=== PATIENT | female | born 1980 | race Caucasian/White ===

== ENCOUNTER 2017-04-28 16:40 | Emergency (ER) | payer BC ==
[2017-04-28] MEDS ORDERED: NAPROXEN SODIUM 550 MG TABLET PO ONE (16:57)
[2017-04-28] MEDS ORDERED: NAPROXEN SODIUM 550 MG TABLET ONE (16:58)
--- NOTE | 2017-04-28 17:17 | ERNOTE ---
Lower Extremity HPI - General Lower Extremities Pain: hip: left Time Seen by Provider: 04/28/17 16:43 Source: patient Exam Limitations: no limitations - Immun/Allergies/Home Medications Immunizations: IMMUNIZATION HX Immunizations Up to Date Yes History of Influenza Vaccine No Hx Pneumococcal Vaccination No Allergies/Adverse Reactions: Allergies Allergy/AdvReac Type Severity Reaction Status Date / Time morphine AdvReac Intermediate Vomiting Verified 04/28/17 16:53 Home Medications: HOME MEDICATIONS Cyclobenzaprine HCl [Flexeril] 10 mg PO TID PRN #30 tab 04/28/17 [Last Taken Unknown] Naproxen [Naprosyn] 500 mg PO BID #60 tablet 04/28/17 [Last Taken Unknown] - History of Present Illness Narrative: Patient was walking along and felt a sudden tearing-like sensation around her left hip socket. She is having some difficulty walking and rates the pain as at least moderate to severe in intensity and is reproduced with palpation around that hip area. Occurred: just prior to arrival Location of Incident: home Method of Injury: Reports: no apparent injury Loss of Consciousness: Reports: no loss of consciousness Associated Symptoms: Reports: unable to bear weight - very painful to bear weight Other Injuries: Reports: none Review of Systems - Review of Systems Constitutional: Present: See HPI EYE: Present: no symptoms reported ENT: Present: no symptoms reported Respiratory: Present: no symptoms reported Cardiology: Present: no symptoms reported Gastrointestinal/Abdominal: Present: no symptoms reported Genitourinary: Present: no symptoms reported Musculoskeletal: Present: See HPI Skin: Present: no symptoms reported Neurological: Present: no symptoms reported Endocrine: Present: no symptoms reported Hematologic/Lymphatic: Present: no symptoms reported Psych: Present: no symptoms reported - Patient's Past Medical History Patient History - Medical: Anxiety, Kidney stone, UTI'S Patient History - Cardiac/Respiratory: No pertinent hx Patient History - Cancer: No Hx of Cancer Patient History - Surgical Procedures: Appendectomy, Tubal Ligation Patient History - Other: None LMP (females 10-50): last week - Social History Living Situations: significant other Abuse History: No History of abuse Psych History: No pertinent hx Smoking Status: Current every day smoker Have you smoked in the past 12 months: Yes Do you dip or chew tobacco: No Alcohol Use: rarely Drug Use: none - Immunizations Immunizations Up to Date: Yes Hx Pneumococcal Vaccination: No History of Influenza Vaccine: No Physical Exam - Physical Exam General Appearance: Present: wd/wn, alert, moderate distress Head Exam: Present: normal inspection, no evidence of injury Eye Exam: Normal inspection: bilateral, PERRL: bilateral Ears, Nose, Throat: Present: normal ENT inspection, H, normal pharynx Neck: Present: normal inspection, nontender Respiratory: Present: no respiratory distress, normal breath sounds, no accessory muscle use, chest nontender, lungs clear Cardiovascular/Chest: Present: regular rate, rhythm, no murmur, normal peripheral pulses Gastrointestinal/Abdominal: Present: normal bowel sounds, nontender, nondistended, soft, no organomegaly Rectal Exam: Present: deferred Back Exam: Present: normal inspection, normal range of motion Extremity Exam: Present: normal range of motion, no edema, decreased range of motion - left hip, other - marked pain on palpation of the gluteus minimus muscle Neurological Exam: Present: alert, oriented, normal mood/affect Skin Exam: Present: normal color, warm/dry Lymphatic Exam: Present: no adenopathy ED Progress - Vital Signs Patient's Vital Signs:: I have reviewed the patient's vital signs. Vital Signs: Vital Signs 04/28/17 16:45 Temperature 37.0 C Pulse Rate 90 Respiratory 14 Rate Blood Pressure 116/58 O2 Sat by Pulse 98 Oximetry - X-Ray X-Ray #1 X-Ray: hip Interpretation: Reviewed by me - Progress/Reassessment Chief Complaint: Hip Pain/Injury Plan - Plan Plan: X-ray of the left hip does not reveal any abnormality but once again palpation of that area appears to reveal tenderness over the gluteus minimus muscle, although the gluteus medius could be involved as well. Patient will be started on nonsteroidal anti-inflammatories and Flexeril and patient will follow-up with her family physician as needed. Departure Clinical Impression: Strain of left hip Qualifiers: Encounter type: initial encounter Qualified Code(s): S76.012A - Strain of muscle, fascia and tendon of left hip, initial encounter - Departure Disposition: Home self-care Condition: Good Instructions: Muscle Strain, [id number] Prescriptions: Cyclobenzaprine HCl [Flexeril] 10 mg PO TID PRN #30 tab PRN Reason: MUSCLE SPASMS Naproxen [Naprosyn] 500 mg PO BID #60 tablet
[2017-04-28 17:44] VITALS: BP 125/80
== END 2017-04-28 17:43 | disposition home or self-care (01) ==
LOC: ER 16:40
DX: S76.012A Strain of muscle, fascia and tendon of left hip, initial encounter (principal)